=== PATIENT | female | born 1945 | race Caucasian/White ===

== ENCOUNTER → 2017-03-29 | Outpatient (CLI) | payer OTHER ==
[~2017-03-29] MED LIST: ALPR0.254 PO; BUDE10.2 INH; CHOL500014 PO; ESOM40CA PO; FURO40TA6 PO; HYDR-3144 PO; POTA20TA14 PO; TIOT18CA INH
== END | disposition home or self-care (01) ==
LOC: CFH 09:33
PROVIDERS: ATTEND Internal Medicine
DX: M48.54XA Collapsed vertebra, not elsewhere classified, thoracic region, initial encounter for fracture (principal); I70.0 Atherosclerosis of aorta; I25.10 Atherosclerotic heart disease of native coronary artery without angina pectoris; I28.1 Aneurysm of pulmonary artery; J84.10 Pulmonary fibrosis, unspecified; J43.8 Other emphysema
CPT/HCPCS: 71250